=== PATIENT | female | born 1990 | race Caucasian/White ===

== ENCOUNTER 2018-09-23 17:18 | Emergency (ER) | payer MEDICAID ==
[~2018-09-23] VITALS: Ht 175.3 cm; Wt 67.7 kg
[~2018-09-23 17:18] MED LIST: NORG1TAB56 PO; ONDA8TAB9 PO
[2018-09-23] MEDS ORDERED: normal saline 1000ML IV soln IV ONE (18:25)
[2018-09-23 18:50] LABS: BASOPHILS % (AUTO) 0.2 % (0-1); EOSINOPHILS % (AUTO) 0 % (0-6); HEMOGLOBIN 14.1 g/dl (12.0-16.0); LYMPHOCYTES # (AUTO) 0.9 X10'3 (1.1-4.8); LYMPHOCYTES % (AUTO) 6.4 % (21-51); MEAN CORPUSCULAR HEMOGLOBIN 30.2 PG (27.0-31.0); MEAN CORPUSCULAR HGB CONC 33.6 g/dL (33.0-36.5); MEAN CORPUSCULAR VOLUME 90.1 FL (78-98); MEAN PLATELET VOLUME 7.8 FL (7.4-10.4); MONOCYTES # (AUTO) 1.1 X10'3 (0-0.9); MONOCYTES % (AUTO) 7.6 % (2-12); NEUTROPHILS # (AUTO) 12.4 X10'3 (1.8-7.7); NEUTROPHILS % (AUTO) 85.8 % (42-75); PLATELET COUNT 219 X10'3 (140-440); RED BLOOD COUNT 4.67 X10'6 (4.20-5.60); RED CELL DISTRIBUTION WIDTH 13.6 % (11.5-14.5); WHITE BLOOD COUNT 14.5 X10'3 (4.5-11.0)
[2018-09-23 18:59] VITALS: BP 142/79
[2018-09-23 19:05] LABS: PROTHROMBIN TIME 10.1 SECONDS (9.0-12.0)
[2018-09-23 19:06] LABS: PARTIAL THROMBOPLASTIN TIME 34 SECONDS (22-32)
[2018-09-23 19:10] LABS: URINE HCG NEGATIVE (NEG)
[2018-09-23 19:13] LABS: ALANINE AMINOTRANSFERASE 24 U/L (12-78); ALBUMIN 3.1 G/DL (3.4-5.0); ALBUMIN/GLOBULIN RATIO 0.7 (1.1-1.5); ALKALINE PHOSPHATASE 74 IU/L (46-116); ANION GAP 17 (8-16); ASPARTATE AMINO TRANSFERASE 12 U/L (10-37); BILIRUBIN,TOTAL 0.7 MG/DL (0.1-1.0); BLOOD UREA NITROGEN 7 MG/DL (7-18); BUN/CREATININE RATIO 8.6 (6.6-38.0); CHLORIDE 95 MMOL/L (99-107); CREATININE 0.81 MG/DL (0.40-0.90); GLUCOSE 79 MG/DL (70-104); MAGNESIUM 1.8 MG/DL (1.5-2.4); POTASSIUM 3.1 MMOL/L (3.5-5.1); SODIUM 132 MMOL/L (135-145); TOTAL CARBON DIOXIDE 19.6 MMOL/L (24-32); TOTAL PROTEIN 7.8 G/DL (6.4-8.2); eGFR 84 ML/MIN
[2018-09-23 19:28] LABS: CLARITY,URINE SLIGHTLY CLOUDY (Clear); COLOR,URINE YELLOW (Yellow); GLUCOSE, URINE NEGATIVE (Neg); KETONES,URINE >=80 mg/dl (Neg); LEUKOCYTE ESTERASE ,URINE SMALL (Neg); NITRITES, URINE NEGATIVE (Neg); OCCULT BLOOD,URINE SMALL (Neg); PROTEIN,URINE 100 mg/dl (Neg)
[2018-09-23 19:42] LABS: UA COLLECTION TYPE CLN CATCH MIDSTREAM
[2018-09-23 19:44] LABS: BACTERIA,URINE 3+ /HPF (Neg); MUCUS STRANDS MANY /LPF (Neg); RBC,URINE 0-2 /HPF (0-2); SQUAMOUS EPITHELIAL CELL,UR MANY /LPF (FEW); WBC,URINE TNTC /HPF (0-4)
[2018-09-23] MEDS ORDERED: metoclopramide 5 mg/ml inj IV ONE (19:50)
[2018-09-23] MEDS ORDERED: diphenhydrAMINE 50 mg/ml inj IV ONE (19:50)
[2018-09-23] MEDS ORDERED: ketorolac trometh. 30mg/ml inj. IV ONE (19:50)
[2018-09-23] MEDS ORDERED: HYDROmorphone inj. 0.5 MG/0.5 ML DISP.SYRIN IV PRN (19:50)
[2018-09-23] MEDS ORDERED: potassium Cl 20 mEq SR tablet PO STA (20:49)
[2018-09-23] MEDS ORDERED: CefTRIAXone 2gm/D5W 50ml 50 ML IV ONE (20:50)
[2018-09-23] MEDS ORDERED: HYDR-3965 PO (21:00)
[2018-09-23] MEDS ORDERED: CEPH500C5 PO (21:00)
== END 2018-09-23 21:33 | disposition home or self-care (01) ==
LOC: ER 17:19
DX: N10 Acute pyelonephritis (principal); F17.210 Nicotine dependence, cigarettes, uncomplicated
CPT/HCPCS: 36415; 71045; 80053; 81001; 81025; 83605; 83735; 84145; 85025; 85610; 85730; 87040; 96361; 96365; 96375; 99284; J0696; J1170; J1200; J1885; J2765; J7030